=== PATIENT | female | born 1970 | race Caucasian/White ===

== ENCOUNTER 2024-01-22 09:06 | Outpatient (CLI) | payer OTHER, SELFPAY | END 2024-01-22 09:07 | disposition home or self-care (01) | PROVIDERS: PCP Family Medicine; Visit Provider Family Medicine | DX: E03.9 Hypothyroidism, unspecified (principal); Z11.59 Encounter for screening for other viral diseases; Z76.89 Persons encountering health services in other specified circumstances | CPT/HCPCS: 80053; 84439; 84443; 86803 ==

== ENCOUNTER 2024-04-22 14:46 | Outpatient (CLI) | payer OTHER, SELFPAY ==
[2024-04-25 17:26] LABS: HPV Source Endocervical; HPV, High Risk by TMA Not Detected
[2024-05-09 17:30] LABS: Pap Test Reviewed by Path Done
== END 2024-04-22 14:47 | disposition home or self-care (01) ==
PROVIDERS: PCP Family Medicine; Visit Provider Family Medicine
DX: Z00.00 Encounter for general adult medical examination without abnormal findings (principal); E03.9 Hypothyroidism, unspecified; K76.9 Liver disease, unspecified; Z13.6 Encounter for screening for cardiovascular disorders; Z13.1 Encounter for screening for diabetes mellitus; Z12.4 Encounter for screening for malignant neoplasm of cervix
CPT/HCPCS: 80053; 80061; 84443; 87624; 87625; 88141; 88142

== ENCOUNTER 2024-08-23 11:30 | Outpatient (CLI) | payer OTHER, SELFPAY | END 2024-08-23 11:31 | disposition home or self-care (01) | LOC: NFLDREF 08-26 01:56 | PROVIDERS: PCP Family Medicine; Referring Provider Family Medicine; Visit Provider Family Medicine | DX: E03.9 Hypothyroidism, unspecified (principal) | CPT/HCPCS: 84436; 84443 ==

== ENCOUNTER 2024-09-25 15:07 | Outpatient (CLI) | payer OTHER, SELFPAY ==
--- NOTE | 2024-09-25 15:20 | CRLHL7_ITS ---
For Patients: As a result of the Century Cures Act, medical imaging exams and procedure reports are released immediately into your electronic medical record. You may view this report before your referring provider. If you have questions, please contact your health care provider. BILATERAL SCREENING MAMMOGRAM WITH COMPUTER-AIDED DETECTION AND TOMOSYNTHESIS TECHNIQUE: CC and MLO views were obtained. These mammographic images have been obtained using full-field digital technique. These mammographic images were interpreted with the benefit of computer-aided detection. Breast Tomosynthesis was used in this interpretation. COMPARISON FILM: 11/22/22, 05/21/21. FINDINGS: The breasts are heterogeneously dense, which may obscure small masses. IMPRESSION: There is no radiographic evidence for malignancy. ASSESSMENT: BI-RADS Category 1: Negative RECOMMENDATION: Routine screening mammogram in 1 year. A lay language report of this examination will be provided to the patient. Eduardo Ferguson M.D. Diagnostic Radiologist [email or web address] SP/Dictated by: Eduardo Ferguson MD @ 09/27/2024 12:40:00 PM (Electronically Signed)
== END 2024-09-25 15:08 | disposition home or self-care (01) ==
LOC: MAMMO 15:08
PROVIDERS: PCP Family Medicine; Visit Provider Family Medicine
DX: Z12.31 Encounter for screening mammogram for malignant neoplasm of breast (principal); R92.333 Mammographic heterogeneous density, bilateral breasts
CPT/HCPCS: 77063; 77067

== ENCOUNTER 2025-01-10 12:39 | Outpatient (CLI) | payer OTHER, SELFPAY | END 2025-01-10 12:40 | disposition home or self-care (01) | PROVIDERS: PCP Family Medicine; Visit Provider Family Medicine | DX: E03.9 Hypothyroidism, unspecified (principal); R76.9 Abnormal immunological finding in serum, unspecified; Z79.899 Other long term (current) drug therapy | CPT/HCPCS: 80053; 82607; 84443 ==

== ENCOUNTER 2025-02-13 13:09 | Outpatient (CLI) | payer OTHER, SELFPAY | END 2025-02-13 13:10 | disposition home or self-care (01) | LOC: FRMREF 13:10 | PROVIDERS: PCP Family Medicine; Visit Provider Family Medicine | DX: Z01.818 Encounter for other preprocedural examination (principal) | CPT/HCPCS: 80048 ==

== ENCOUNTER 2025-05-08 16:17 | Outpatient (CLI) | payer OTHER, SELFPAY ==
--- NOTE | 2025-06-03 09:49 | W.PM.SLEEP ---
Sleep Study Details Details Interpreting Provider: Lavinia Date of Sleep Study: 05/08/25 Sleep Study Details: STUDY TYPE:? Home unattended ? BMI:? 19.74 ORDERING PROVIDER:Angela Mcnulty INDICATION:? Concern for sleep apnea ? SLEEP SUMMARY:? 429 minutes monitoring time RESPIRATORY SUMMARY:? AHI 7.3 per rule 1A, 5.6 per CMS guideline Low oxygen 85 0.5% of study oxygen less than 90% Snoring 94.8% PERIODIC LIMB MOVEMENTS OF SLEEP:? Not recorded CARDIAC:? Range 47-101, mean 56 beats per minute IMPRESSION:? Mild obstructive sleep apnea RECOMMENDATION: Treatment options include CPAP dental appliance and/or airway expansion surgery.
== END 2025-05-08 16:18 | disposition home or self-care (01) ==
LOC: SLEEP 16:18
PROVIDERS: PCP Family Medicine; Visit Provider Family Medicine
DX: G47.33 Obstructive sleep apnea (adult) (pediatric) (principal)
CPT/HCPCS: 95806

== ENCOUNTER 2025-05-19 17:15 | Outpatient (CLI) | payer OTHER, SELFPAY | END 2025-05-19 17:16 | disposition home or self-care (01) | PROVIDERS: PCP Family Medicine; Visit Provider Family Medicine | DX: E03.9 Hypothyroidism, unspecified (principal); K22.70 Barrett's esophagus without dysplasia; K76.9 Liver disease, unspecified | CPT/HCPCS: 80053; 80061; 82607; 84443 ==